=== PATIENT | male | born 1950 | race Caucasian/White ===

== ENCOUNTER 2017-12-25 18:44 | Emergency (ER) | payer MEDICARE, BC ==
[2017-12-25 18:57] VITALS: BP 144/57
--- OUTSIDE RECORDS SUMMARY | 2017-12-25 19:55 | XMS REPORT ---
:1950 External Reference #:[id number] [facility] Address [address] [place] [address] Phone [phone] Care Team Providers Name Role Phone Ar Gupta MD Primary Care Physician Unavailable Payers Type Date Identification Numbers Payment Provider Subscriber Medicare Primary Effective: Policy Number: Medicare Sobeida Broussard 2014 [id number] PayID: [id number] [address] [place] [address] Medigap Part B Effective: 2012 Policy Number: PAOLO Cecilia Broussard [id number] PayID: [id number] [address] [address] [place] [address] Medigap Part B Effective: 2010 Policy Number: BS Debbie JUSTINA Broussard [id number] Expires: 2012 PayID: [id number] [address] [address] [place] [address] Problems Date Description Provider Status Onset: 07/07/2016 Anxiety state Ar Gupta M.D.,FACP Active Note: and depression Onset: 07/07/2016 Mixed hyperlipidemia Ar Gupta M.D.,FACP Active Onset: 07/07/2016 Psoriasis Ar Gupta M.D.,FACP Active Onset: 07/07/2016 Onychomycosis Ar Gupta M.D.,FACP Active Onset: 07/07/2016 Sinus bradycardia Ar Gupta M.D.,FACP Active Onset: 07/07/2016 Impaired fasting glycaemia Ar Gupta M.D.,FACP Active Onset: 03/15/2017 Intermittent asthma Ar Gupta M.D.,FACP Active Note: on PFTs Onset: 06/14/2017 Ex-smoker Ar Gupta M.D.,FACP Active Family History Date Family Member(s) Problem(s) Comments General Heart Disease General Cancer Father PTSD Father due to Heart Disease () Father due to Stroke () Mother Chronic Obstructive Pulmonary Disease (COPD) Mother Viral Hepatitis C Siblings 3 First Brother due to Cystic () Fibrosis : (age 24 Third Brother due to Cystic dx age 7 Years) Fibrosis Paternal Grandmother due to CHF () Maternal Grandfather due to NC () Maternal Grandmother due to Lung Cancer () Social History Type Date Description Comments Marital Status Lives With Occupation club attendant tree care Occupation Retired Cigarette Use 07/07/2016 Former Cigarette Smoker ETOH Use 08/22/2017 consumes 2 six packs per week Smoking Patient is a former smoker Smoked for 25 years; 1ppd plus for 10-15 years. Last 5 years 2.5ppd Recreational Drug Use Denies Drug Use Daily Caffeine Consumes on average 3 cups of regular coffee per day Exercise Type/Frequency Exercises regularly General Hx Text Allergies, Adverse Reactions, Alerts Date Description Reaction Status Severity Comments 02/23/2016 Penicillin active 02/23/2016 Codeine active 04/09/2014 NKDA inactive Medications Medication Date Status Form Strength Qnty SIG Indications Ordering Provider Voriconazole 11/24/ Active Tablets 200mg 30tab 1 tablet Roro 2018 s by mouth martell Fernandez MD daily for 2 weeks Prilosec 10/02/ Active Capsules DR 20mg 30cap Take 1 J45.40 Claudia S. 2018 s tab by Foster, mouth N.P. daily Calcipotriene 06/14/ Active Cream 0.005% 120un use twice Ar 2018 its daily Jakub Gupta M.D.,MARGARETTEP Clobetasol 06/14/ Active Ointment 0.05% 15gm use twice Ar Propionate 2018 daily Jakub Gupta M.D.,MARGARETTEP Fluticasone 06/14/ Active Suspension 50mcg/Act 16uni 1 spray Ar Propionate 2018 ts each Jakub Gupta, nostril M.D.,FACP in in the morning Ventolin HFA 03/15/ Active Aerosol 108(90Base 1unit 2 puffs Ar 2016 ) mcg/Act s by mouth Jakub Gupta, four M.DRuthann,FACP times a day as needed Epipen 2-Gaurang 01/05/ Active Solution 0.3mg/0.3M 2unit use as Ar 2016 Auto-Inject L s directed Jakub Gupta M.D.,FACP Sertraline HCL 07/07/ Active Tablets 50mg 45tab Take 1 Ar 2016 s And 05/23 Jakub Gupta, Tablets M.D.,FACP By Mouth One Time Daily Aspir-81 / Active Tablets DR 81mg 1 by Unknown 0000 mouth every day Clonazepam / Active Tablets 0.5mg 60tab take 1 by [place] 0000 s mouth Pachikara twice a , M.D. day as directed Ibuprofen / Active Tablets 600mg three Unknown 0000 times a day prn Breo Ellipta / Active Aerosol 200-25mcg/ Inhale 1 Unknown 0000 Inh puff By Mouth Every Day Spiriva / Active Aerosol 1.25mcg/Ac inhale Unknown Respimat 0000 t two puffs by mouth every day Osage 3 / Active Capsules 1 by Unknown 0000 mouth every day Multi Vitamin / Active Tablets 1 by Unknown Daily 0000 mouth every day Vitamin B12 / Active Tablets 100mcg 1 by Unknown 0000 mouth every day Rosuvastatin / Active Tablets 5mg 90tab Take 1 Ar Calcium 0000 s Tablet By Jakub Gupta, Mouth M.D.,FACP Nightly AT Bedtime Doxycycline 06/21/ Hx Tablets 100mg 20tab 1 by Ar Shearerclate 2017 - s mouth Jakub Gupta, 07/01/ twice a M.DRuthann,FACP 2017 day Arnuity Ellipta 06/14/ Hx Aerosol 100mcg/Act 30uni 1 puff Ar 2018 - ts inhaled Jakub Gupta, 08/22/ every day M.D.,FACP 2017 Doxycycline 09/05/ Hx Capsules 100mg 2caps 2 tabs Ar Hoffman 2016 - daily x 1 Jakub Gupta, 09/23/ day [place],[facility] 2017 Paroxetine HCL 07/07/ Hx Tablets 20mg 90tab 1 by Ar 2016 - s mouth Jakub Gupta, 07/07/ every day [place],[facility] 2016 Paroxetine HCL 07/07/ Hx Tablets 10mg 21tab take one Ar Kwan - s tablet by Jakub Gupta, 09/23/ mouth one Yes[place],[facility] 2017 time daily for 3 wks then stop Terbinafine HCL 07/07/ Hx Tablets 250mg 84tab take one Ar 2016 - s tablet by Jakub Gupta, 09/29/ mouth one Yes[place],[facility] 2017 time daily for 12 weeks Percocet 07/31/ Hx Tablets 5-325mg 40tab 1-2 po Dirk 2011 - q4h prn Christie, 04/01/ pain [place] [address] / Hx Unknown 0000 Klonopin / Hx 0.5mg Unknown 0000 - 2016 Paxil / Hx 20mg Unknown 0000 - 2016 Paroxetine HCL / Hx Tablets 20mg Take 1 Unknown 0000 - Tablet By Mouth 2016 Every Day Spiriva / Hx Aerosol 2.5mcg/Act 2 puffs Unknown Respimat 0000 - every day 2017 Immunizations CPT Code Status Date Vaccine Lot # 10230 Given 02/10/2017 Influenza Virus Vaccine, Quadrivalent, Split, Preservative Free 25691 Given 02/29/2016 Pneumococcal Conjugate Vaccine 13 Valent For Intramuscular Use 04206 Given 12/01/2014 Pneumonia Vaccine 24193 Given 07/04/2012 Tdap - Tetanus/Diptheria/Acellular Pertussis 11814 Given 11/24/2005 Hepatitis A Vaccine Adult Dosage 09114 Given 05/25/2005 Hepatitis A Vaccine Adult Dosage Vital Signs Date Vital Result Comment 12/11/2017 Height 70 inches 5'10" Weight 180.00 lb Heart Rate 54 /min BP Systolic Sitting 118 mmHg Lue regular cuff BP Diastolic Sitting 78 mmHg Lue regular cuff Respiratory Rate 12 /min O2 % BldC Oximetry 96 % BMI (Body Mass Index) 25.8 kg/m2 11/16/2017 Height 70 inches 5'10" Weight 182.00 lb Heart Rate 48 /min BP Systolic Sitting 108 mmHg BP Diastolic Sitting 60 mmHg Respiratory Rate 14 /min O2 % BldC Oximetry 98 % BMI (Body Mass Index) 26.1 kg/m2 10/02/2017 Height 70 inches 5'10" Weight 190.00 lb Heart Rate 52 /min BP Systolic Sitting 108 mmHg BP Diastolic Sitting 58 mmHg Respiratory Rate 14 /min O2 % BldC Oximetry 95 % BMI (Body Mass Index) 27.3 kg/m2 08/28/2017 Height 70 inches 5'10" Weight 180.00 lb Per patient Heart Rate 50 /min BP Systolic Sitting 140 mmHg Rue large cuff BP Diastolic Sitting 80 mmHg Rue large cuff Respiratory Rate 12 /min O2 % BldC Oximetry 96 % BMI (Body Mass Index) 25.8 kg/m2 08/22/2017 Height 70 inches 5'10" Weight 182.00 lb Heart Rate 67 /min BP Systolic Sitting 118 mmHg BP Diastolic Sitting 678 mmHg Body Temperature 95.2 F O2 % BldC Oximetry 98 % BMI (Body Mass Index) 26.1 kg/m2 07/31/2017 Weight 177.00 lb Heart Rate 47 /min BP Systolic 122 mmHg BP Diastolic 60 mmHg Body Temperature 97.0 F O2 % BldC Oximetry 97 % 06/21/2017 Weight 185.00 lb Heart Rate 52 /min BP Systolic Sitting 120 mmHg BP Diastolic Sitting 58 mmHg Body Temperature 96.6 F O2 % BldC Oximetry 96 % 06/14/2017 Weight 189.00 lb Heart Rate 51 /min BP Systolic Sitting 128 mmHg BP Diastolic Sitting 70 mmHg Body Temperature 96.3 F O2 % BldC Oximetry 95 % 05/29/2017 Height 70 inches 5'10" Weight 184.00 lb BP Systolic 118 mmHg BP Diastolic 78 mmHg Respiratory Rate 18 /min Body Temperature 97.8 F Pain Level 2 BMI (Body Mass Index) 26.4 kg/m2 02/27/2017 Weight 189.00 lb Heart Rate 42 /min BP Systolic Sitting 114 mmHg BP Diastolic Sitting 66 mmHg Body Temperature 95.2 F O2 % BldC Oximetry 97 % 09/23/2016 Weight 195.12 lb Heart Rate 50 /min BP Systolic Sitting 100 mmHg BP Diastolic Sitting 60 mmHg Body Temperature 95.2 F O2 % BldC Oximetry 97 % 07/07/2016 Height 70 inches 5'10" Weight 197.00 lb Heart Rate 52 /min BP Systolic Sitting 118 mmHg Irregular BP Diastolic Sitting 60 mmHg Irregular Body Temperature 96.4 F O2 % BldC Oximetry 96 % BMI (Body Mass Index) 28.3 kg/m2 03/22/2016 Heart Rate 42 /min Respiratory Rate 16 /min Body Temperature 96.8 F 02/23/2016 Height 70 inches 5'10" Weight 195.00 lb Heart Rate 54 /min BP Systolic 140 mmHg BP Diastolic 70 mmHg Respiratory Rate 16 /min Body Temperature 97.3 F BMI (Body Mass Index) 28.0 kg/m2 04/09/2014 Height 70 inches 5'10" Weight 185.00 lb Heart Rate 53 /min BP Systolic 131 mmHg BP Diastolic 74 mmHg BMI (Body Mass Index) 26.5 kg/m2 07/06/2010 Height 69.75 inches 5'9.75" Weight 190.00 lb Heart Rate 48 /min BP Systolic 120 mmHg BP Diastolic 67 mmHg BMI (Body Mass Index) 27.5 kg/m2 Results Test Date Test Result H/L Range Note Laboratory test 11/16/2017 Fungal Cult Other SEE RESULT 1 finding Sources BELOW Sputum Culture & 11/16/2017 Sputum Culture Gram SEE RESULT 2 Sensitiv Stain BELOW Laboratory test 11/16/2017 Fungal Culture Id See Comment 3 finding Laboratory test 08/28/2017 Alpha 1 Antitrypsin A1a 114 mg/dL 100 - 190 4 finding Anca Panel For 08/28/2017 Myeloperoxidase AB < 0.2 U 5 Vasculitis Proteinase 3 AB < 0.2 U 6 CBC Auto Diff 08/28/2017 White Blood Count 6.7 10^3/uL 3.5-10.8 Red Blood Count 5.21 10^6/uL 4.0-5.4 Hemoglobin 15.9 g/dL 14.0-18.0 Hematocrit 47 % 42-52 Mean Corpuscular Volume 90 fL 80-94 Mean Corpuscular Hemoglobin 30 pg 27-31 Mean Corpuscular HGB Conc 34 g/dL 31-36 Red Cell Distribution Width 14 % 10.5-15 Platelet Count 173 10^3/uL 150-450 Mean Platelet Volume 8.4 um3 7.4-10.4 Abs Neutrophils 4.2 10^3/uL 1.5-7.7 Abs Lymphocytes 1.8 10^3/uL 1.0-4.8 Abs Monocytes 0.4 10^3/uL 0-0.8 Abs Eosinophils 0.2 10^3/uL 0-0.6 Abs Basophils 0.1 10^3/uL 0-0.2 Abs Nucleated RBC 0 10^3/uL Granulocyte % 62.1 % 38-83 Lymphocyte % 26.7 % 25-47 Monocyte % 6.6 % 0-7 Eosinophil % 3.5 % 0-6 Basophil % 1.1 % 0-2 Nucleated Red Blood Cells % 0 Igg Subclasses 08/28/2017 Total IgG 686 mg/dL 767 - 1590 Immunoglobulin G1 325 mg/dL 341 - 894 Immunoglobulin G2 280 mg/dL 171 - 632 Immunoglobulin G3 67.9 mg/dL 7 Immunoglobulin G4 19.7 mg/dL 8 Laboratory test finding 08/28/2017 Immunoglobulin E (Ige) 111 kU/L <=214 9 Immunoglobulin A (Iga) 154 mg/dL 61 - 356 10 Rheumatoid Factor <10 IU/mL 0-14 11 Anti Nuclear Antibody 0.6 U 12 Angiotensin Converting Enzyme 19 U/L 8 - 53 13 CRP High Sensitivity 0.49 mg/L 14 Laboratory test finding 08/22/2017 Hepatitis C Antibody Nonreactive Nonreactive Erythrocyte Sed Rate 7 mm/Hr 0-40 Basic Metabolic Panel 08/22/2017 Sodium 140 mmol/L 139-145 Potassium 4.3 mmol/L 3.5-5.0 Chloride 101 mmol/L 101-111 Co2 Carbon Dioxide 33 mmol/L High 22-32 Anion Gap 6 mmol/L 2-11 Glucose 92 mg/dL 70-100 Blood Urea Nitrogen 13 mg/dL 6-24 Creatinine 1.05 mg/dL 0.67-1.17 BUN/Creatinine Ratio 12.4 8-20 Calcium 9.7 mg/dL 8.6-10.3 Egfr Non- 70.2 >60 Egfr 90.3 >60 15 Basic Metabolic Panel 08/21/2017 Sodium 142 mmol/L 139-145 Potassium 4.1 mmol/L 3.5-5.0 Chloride 103 mmol/L 101-111 Co2 Carbon Dioxide 33 mmol/L High 22-32 Anion Gap 6 mmol/L 2-11 Glucose 102 mg/dL High 70-100 Blood Urea Nitrogen 14 mg/dL 6-24 Creatinine 1.22 mg/dL High 0.67-1.17 BUN/Creatinine Ratio 11.5 8-20 Calcium 9.4 mg/dL 8.6-10.3 Egfr Non- 59.1 >60 Egfr 76.0 >60 16 Laboratory test finding 08/17/2017 Blood Urea Nitrogen BUN 14 mg/dL 6-24 Creatinine 08/17/2017 Creatinine 0.94 mg/dL 0.67-1.17 Egfr Non- 79.8 >60 Egfr 102.6 >60 17 Laboratory test finding 05/08/2017 TSH (Thyroid Stim Horm) 2.00 mcIU/mL 0.34-5.60 Vitamin B12 492 pg/mL 180-914 18 Comp Metabolic Panel 05/08/2017 Sodium 140 mmol/L 133-145 Potassium 4.1 mmol/L 3.5-5.0 Chloride 104 mmol/L 101-111 Co2 Carbon Dioxide 32 mmol/L 22-32 Anion Gap 4 mmol/L 2-11 Glucose 101 mg/dL High 70-100 Blood Urea Nitrogen 17 mg/dL 6-24 Creatinine 1.00 mg/dL 0.67-1.17 BUN/Creatinine Ratio 17.0 8-20 Calcium 9.4 mg/dL 8.6-10.3 Total Protein 6.2 g/dL Low 6.4-8.9 Albumin 4.1 g/dL 3.2-5.2 Globulin 2.1 g/dL 2-4 Albumin/Globulin Ratio 2.0 1-3 Total Bilirubin 0.60 mg/dL 0.2-1.0 Alkaline Phosphatase 44 U/L 34-104 Alt 20 U/L 7-52 Ast 21 U/L 13-39 Egfr Non- 74.5 >60 Egfr 95.9 >60 19 Lipid Profile (Trig/Chol/HDL) 05/08/2017 Triglycerides 69 mg/dL 20 Cholesterol 147 mg/dL 21 HDL Cholesterol 47.2 mg/dL 22 LDL Cholesterol 86 mg/dL 23 Basic Metabolic Panel 11/04/2016 Sodium 138 mmol/L 133-145 Potassium 4.5 mmol/L 3.5-5.0 Chloride 105 mmol/L 101-111 Co2 Carbon Dioxide 25 mmol/L 22-32 Anion Gap 8 mmol/L 2-11 Glucose 107 mg/dL High 70-100 Blood Urea Nitrogen 16 mg/dL 6-24 Creatinine 1.04 mg/dL 0.67-1.17 BUN/Creatinine Ratio 15.4 8-20 Calcium 8.9 mg/dL 8.6-10.3 Egfr Non- 71.2 >60 Egfr 91.6 >60 24 Laboratory test finding 11/04/2016 Hemoglobin A1c (Glyco 5.6 % Less than 6.0 25 HGB) Liver Function Panel 08/30/2016 Total Protein 6.6 g/dL 6.4-8.9 Albumin 4.2 g/dL 3.2-5.2 Globulin 2.4 g/dL 2-4 Albumin/Globulin Ratio 1.8 1-3 Total Bilirubin 0.60 mg/dL 0.2-1.0 Direct Bilirubin 0.10 mg/dL 0.03-0.18 Indirect Bilirubin 0.5 mg/dL 0.3-1.0 Alkaline Phosphatase 51 U/L 34-104 Alt 33 U/L 7-52 Ast 29 U/L 13-39 Laboratory test finding 03/14/2016 Surgical Pathology SEE RESULT BELOW 26 1 SEE RESULT BELOW Name: SOBEIDA BROUSSARD : [address]: Roro Fernandez MD Acct: [id number] Unit: [id number] AGE: 67 Location: [facility] Re11/16/17 SEX: M Status: REG REF SPEC: [id number] GIOVANNI: 11/16/[address]: Roro Fernandez MD REQ: [id number] RECD: 11/16/17-1223 STATUS: RES _ SOURCE: RESP SPDESC: ORDERED: Fungal - Other Procedure Result Reported Site Fungal Cult - Other Sources Preliminary 12/04/17- 140 ML Organism 1 MOLD Please see sputum culture for mold identification. * ML - Main Lab . END OF REPORT DEPARTMENT OF PATHOLOGY, [address] [place] [address] Manjinder Craig M.D. Director [facility] # [id number] 2 SEE RESULT BELOW Name: SOBEIDA BROUSSARD : [address]: Roro Fernandez MD Acct: [id number] Unit: [id number] AGE: 67 Location: [facility] Re11/16/17 SEX: M Status: REG REF SPEC: [id number] GIOVANNI: 11/16/[address] [facility] [address]: Roro Fernandez MD REQ: [id number] RECD: 11/16/17 STATUS: COMP _ SOURCE: SPUTUM SPDESC: ORDERED: Sputum Cult/GS Procedure Result Reported Site Sputum Smear Final 11/16/17- 1453 ML 4+ Neutrophils 1+ Epithelial Cells 1+ Gram Positive Diplococci 3+ Gram Positive Cocci 1+ Gram Positive Bacilli 2+ Gram Negative Coccobacilli Sputum Culture Final 11/18/17- 1051 ML Organism 1 MOLD Referred Specimen Isolate sent to [facility] for Identification Organism 2 NORMAL IDA Quantity 3+ * - [facility] . END OF REPORT DEPARTMENT OF PATHOLOGY, [address] [place] [address] Manjinder Craig M.D. Director [facility] # [id number] 3 SOURCE: SPUTUM CULTURE REFERRED FOR ID, FUNGUS FINAL ASPERGILLUS FUMIGATUS Test Performed by: [facility] [address] [place] [address] 4 Test Performed by: [facility] [address] [place] [address] 5 REFERENCE VALUE <0.4 (Negative) 6 REFERENCE VALUE <0.4 (Negative) Test Performed by: [facility] [address] [place] [address] 7 REFERENCE VALUE 18.4 - 106.0 8 REFERENCE VALUE 2.4 - 121.0 Test Performed by: [facility] [address] [place] [address] 9 Test Performed by: [facility] [address] [place] [address] 10 Test Performed by: [facility] [address] [place] [address] 11 Performed by [facility], [address] [place] [id number] [email or web address], Israel Parra MD - Lab. Director Test Performed by: [facility] [address] [place] [address] 12 REFERENCE VALUE <=1.0 (Negative) Test Performed by: [facility] [address] [place] [address] 13 Test Performed by: [facility] [address] [place] [address] 14 Low risk: <1.00 Average risk: 1.00-3.00 High risk: >3.00 15 Because ethnic data is not always readily available, this report includes an eGFR for both -Americans and non- Americans. The National Kidney Disease Education Program (NKDEP) does not endorse the use of the MDRD equation for patients that are not between the ages of 18 and 70, are , have extremes of body size, muscle mass, or nutritional status, or are non- or non-. According to the National Kidney Foundation, irrespective of diagnosis, the stage of the disease is based on the level of kidney function: Stage Description GFR(mL/min/1.73 m(2)) 1 Kidney damage with normal or decreased GFR 90 2 Kidney damage with mild decrease in GFR 60-89 3 Moderate decrease in GFR 30-59 4 Severe decrease in GFR 15-29 5 Kidney failure <15 (or dialysis) 16 Because ethnic data is not always readily available, this report includes an eGFR for both -Americans and non- Americans. The National Kidney Disease Education Program (NKDEP) does not endorse the use of the MDRD equation for patients that are not between the ages of 18 and 70, are , have extremes of body size, muscle mass, or nutritional status, or are non- or non-. According to the National Kidney Foundation, irrespective of diagnosis, the stage of the disease is based on the level of kidney function: Stage Description GFR(mL/min/1.73 m(2)) 1 Kidney damage with normal or decreased GFR 90 2 Kidney damage with mild decrease in GFR 60-89 3 Moderate decrease in GFR 30-59 4 Severe decrease in GFR 15-29 5 Kidney failure <15 (or dialysis) 17 Because ethnic data is not always readily available, this report includes an eGFR for both -Americans and non- Americans. The National Kidney Disease Education Program (NKDEP) does not endorse the use of the MDRD equation for patients that are not between the ages of 18 and 70, are , have extremes of body size, muscle mass, or nutritional status, or are non- or non-. According to the National Kidney Foundation, irrespective of diagnosis, the stage of the disease is based on the level of kidney function: Stage Description GFR(mL/min/1.73 m(2)) 1 Kidney damage with normal or decreased GFR 90 2 Kidney damage with mild decrease in GFR 60-89 3 Moderate decrease in GFR 30-59 4 Severe decrease in GFR 15-29 5 Kidney failure <15 (or dialysis) 18 Normal Range 180 to 914 Indeterminate Range 145 to 180 Deficient Range <145 19 Because ethnic data is not always readily available, this report includes an eGFR for both -Americans and non- Americans. The National Kidney Disease Education Program (NKDEP) does not endorse the use of the MDRD equation for patients that are not between the ages of 18 and 70, are , have extremes of body size, muscle mass, or nutritional status, or are non- or non-. According to the National Kidney Foundation, irrespective of diagnosis, the stage of the disease is based on the level of kidney function: Stage Description GFR(mL/min/1.73 m(2)) 1 Kidney damage with normal or decreased GFR 90 2 Kidney damage with mild decrease in GFR 60-89 3 Moderate decrease in GFR 30-59 4 Severe decrease in GFR 15-29 5 Kidney failure <15 (or dialysis) 20 Desirable: <150 Borderline High: 150-199 High: 200-499 Very High: >500 21 Desirable: <200 Borderline High: 200-239 High: >239 22 Low: <40 Desirable: 40-60 High: >60 23 Desirable: <100 Near Optimal: 100-129 Borderline High: 130-159 High: 160-189 Very High: >189 24 Because ethnic data is not always readily available, this report includes an eGFR for both -Americans and non- Americans. The National Kidney Disease Education Program (NKDEP) does not endorse the use of the MDRD equation for patients that are not between the ages of 18 and 70, are , have extremes of body size, muscle mass, or nutritional status, or are non- or non-. According to the National Kidney Foundation, irrespective of diagnosis, the stage of the disease is based on the level of kidney function: Stage Description GFR(mL/min/1.73 m(2)) 1 Kidney damage with normal or decreased GFR 90 2 Kidney damage with mild decrease in GFR 60-89 3 Moderate decrease in GFR 30-59 4 Severe decrease in GFR 15-29 5 Kidney failure <15 (or dialysis) 25 Therapeutic target for the treatment of diabetes Mellitus patients is <7% HBA1C, and in selective patients <6.0%.Please refer to [place] [employer] Diabetic care guidelines for further information. 26 SEE RESULT BELOW Name: SOBEIDA BROUSSARD : [address]: Jack Hernandez MD Acct: [id number] Unit: [id number] AGE: 65 Location: [place] Re03/14/16 SEX: M Status: REG [facility] SPEC: [id number] GIOVANNI: 03/14/16- SUBM DR: Jack Hernandez MD REQ: [id number] RECD: 03/14/16 STATUS: SOUT _ ORDERED: LEVEL III FINAL DIAGNOSIS Soft tissue, left upper back, excision: -- Lipoma and skeletal muscle fragments. PRE-OPERATIVE DIAGNOSIS Lipoma left upper back GROSS DESCRIPTION The specimen is received in formalin labeled, Lipoma Left Upper Back, and consists of an 8.5 x 7.5 by up to 1.6 cm aggregate of yellow irregular focally encapsulated adipose tissue fragments. The cut surface consists of glistening yellow lobulated adipose tissue. Skin Specialist sections, one cassette. Signed (signature on file) Manjinder Craig MD [id number] END OF REPORT * ML=Testing performed at Main Lab DEPARTMENT OF PATHOLOGY, [address] [place] [address] Manjinder Craig M.D. Director [facility] # [id number] Procedures Date CPT Code Description Status 03/07/2017 17053 Diffusing Capacity Completed 03/07/2017 40472 Plethysmography Determination Lung Volumes & Per Airway Completed Resist 03/07/2017 13407 Pulmonary Function><Bronchodil Completed 03/14/2016 78184 Excision Tumor Back/Flank, Soft Tissue, Subcutaneous, > Completed 3 CM 02/26/2015 Colonoscopy Completed 04/09/2014 84081 Rad Exam; Knee, Ap&L Completed 04/09/2014 79098 Xray Knee 3 Views Completed 06/18/2013 20088 Stress Test Completed 12/10/2012 40445 Polysomnography Sleep Staging 4+ Parameters W/Cpap Completed 08/23/2012 03997 Polysomnography Sleep Staging 4+ Parameters Completed 04/23/2012 73460 Rad Exam; Hip Unilat Completed 04/23/2012 83755 Rad Exam; Pelvis Completed 11/02/2011 60176 Rad Exam; Hip Unilat Completed 11/02/2011 67611 Rad Exam; Pelvis Completed 08/10/2011 22691 Rad Exam; Hip Unilat Completed 08/10/2011 88198 Rad Exam; Pelvis Completed 06/11/2010 47161 Amputation,Finger Or Thumb,Prim Or Secondary Any JT Or Completed [facility] 06/11/2010 75194 Amputation,Finger Or Thumb,Prim Or Secondary Any JT Or Completed [facility] Encounters Type Date Location Provider CPT E/M Dx Office Visit 11/16/2017 10:30a [place] [address] R05 [facility] R04.2 J98.4 J45.40 R91.1 Office Visit 10/02/2017 10:00a Pulmonology And Sleep Claudia Smith 45730 J45.40 [facility] N.P[facility] J98.4 Z87.891 Office Visit 08/28/2017 7:00a [facility] [address] J98.4 [facility] J45.40 Z87.891 Office Visit 07/31/2017 11:00a [facility] Internal Ar Gupta, 12920 J45.40 Medicine - [place] Perfecto Patterson,FACP Office Visit 06/21/2017 12:20p [facility] Internal Ar Gupta, 26730 J45.41 Medicine - [place] Perfecto Patterson,FACP R04.2 Office Visit 06/14/2017 8:20a [facility] Internal Medicine Ar Gupta, 33150 J45.41 - [place] Perfecto Patterson,FACP Office Visit 05/29/2017 9:00a Orthopedic Services Timi Soriano M.D. 02604 M17.11 Of [facility] Office Visit 02/27/2017 2:40p [facility] Internal Medicine Ar Gupta, 82423 J44.9 - [place] Perfecto Patterson,FACP F41.9 Office Visit 09/23/2016 9:40a [facility] Internal Medicine Ar Gupta, 79941 F41.9 - [place] Perfecto Patterson,FACP E78.2 B35.1 Office Visit 07/07/2016 1:00p [facility] Internal Medicine Ar Gupta, 89486 F41.9 - [place] Yesenia,FACP E78.2 R73.01 B35.1 Office Visit 04/09/2014 2:30p Orthopedic Services Timi Soriano M.D. 28235 715.96 Of [facility] Office Visit 09/04/2012 9:49a Agatha Snider, 63768 327.23 Disorder [place] M.D. Office Visit 07/10/2012 10:59a Agatha Sleep Dedrick Snider, [address] 786.09 Disorder [place] M.D. Office Visit 04/23/2012 1:30p [facility] Timi Soriano M.D. 65849 726.5 Of C.M.A. Office Visit 11/02/2011 4:00p [facility] Timi Soriano M.D. 57371 733.97 Of C.M.A. Office Visit 09/21/2011 4:15p [facility] Shekhar Suggs 38881 733.97 Of C.M.ACordelia Astorga Office Visit 08/10/2011 4:30p [facility] Timi Soriano M.D. 38483 733.97 Of C.M.A. Office Visit 08/01/2011 2:00p [facility] Timi Soriano M.D. 88707 733.97 Of C.M.A. Office Visit 07/06/2010 10:00a [facility] LEONID Mendoza 59511 886.0 Of C.M.A. Office Visit 06/15/2010 11:00a [facility] Maura 17681 886.0 Of C.M.ARuthann Saenz M.D. Office Visit 06/11/2010 2:15p [facility] Rufino Mackey M.D. 39871 886.0 Of C.M.A. Plan of Care 12/11/2017 - Claudia Smith, N.P.R04.2 HemoptysisNew Labs:Liver Function PanelFollow up:OV Rebecca 2-3 weeks.Recommendations:Please print lab slip for patient Continue voriconozole for 2 more nnzioN37.4 Other disorders of lungJ45.40 Moderate persistent asthma, ilyobjjhhqsbxT79.1 Solitary pulmonary umloavN59.2 Palpitations
--- OUTSIDE RECORDS SUMMARY | 2017-12-25 19:56 | XMS REPORT ---
:1950 External Reference #:[id number] Author Organization [facility] Address [address] [place] [address] Phone [phone] Care Team Providers Name Role Phone Emery Chawla M.D. Care Team Information Communications Department Chair Unavailable Emery Chawla M.D. Primary Care Physician Unavailable Payers Type Date Identification Numbers Payment Provider Subscriber Medicare Primary PayID: [id number] Medicare-[facility] Govn [employer] Derrell Oneil [address] [facility] [place] [address] [facility] Part B Policy Number: [id number] [facility] Shobha Oneil [place] Group Number: [id number] [address] [address] PayID: [id number] [place] [address] Problems Date Description Provider Status Onset: 12/04/2017 Cough Rosales De Luna MD Active Onset: 12/04/2017 Hemoptysis Rosales De Luna MD Active Onset: 12/04/2017 Bleeding from nose Rosales De Luna MD Active Family History Date Family Member(s) Problem(s) Comments General Hearing Loss General Heart Attack General Heart Disease Father Heart Attack X 3 Father Heart Disease Mother Hearing Loss Social History Type Date Description Comments Occupation amborist Cigarette Use Former cigarette smoker, smoked 2 packs a day for 18 years, quit smoking at age 57 Cigars Does not smoke cigars Pipe Does not smoke a pipe Smokeless Tobacco Does not use smokeless tobacco Alcohol Rarely drinks alcohol Allergies, Adverse Reactions, Alerts Date Description Reaction Status Severity Comments 07/15/2009 Penicillins active 07/15/2009 Codeine Phosphate active Medications Medication Date Status Form Strength Qnty SIG Indications Ordering Provider Voriconazole 00/ Active Tablets 200mg Take 1 Unknown 0000 Tablet By Mouth Twice A Day For 2 Weeks Clonazepam / Active Tablets 0.5mg Take 1 Unknown 0000 Tablet By Mouth Two Times Daily as Directed Maximum Daily Dose Spiriva Respimat / Active Aerosol 1.25mcg/Ac Inhale 2 Unknown 0000 t Puffs By Mouth Every Day Breo Ellipta / Active Aerosol 200-25mcg/ Inhale 1 Unknown 0000 Inh puff By Mouth Every Day Sertraline HCL / Active Tablets 50mg Take 1 And Unknown 0000 1/2 Tablets By Mouth One Time Daily Omeprazole / Active Capsules 20mg Take [address] Capsule By Mouth Every Day Fluticasone / Active 50mcg as Unknown Nasal [place] 0000 directed Rosuvastatin / Active Tablets 5mg Take 1 Unknown Calcium 0000 Tablet By Mouth Nightly AT Bedtime Paxil / Hx Unknown 2017 Klonopin / Hx Unknown 2017 Fenofibrate / Hx Unknown 2017 Sulfamethazine / Hx Unknown 2017 Vital Signs Date Vital Result Comment 12/04/2017 Weight 182.00 lb Weight in kg's 82.555 Height 70 inches 5'10" Height in cm's 177.8 cm BMI (Body Mass Index) 26.1 kg/m2 09/25/2009 BP Systolic 121 mmHg BP Diastolic 63 mmHg Heart Rate 55 /min Respiratory Rate 16 /min Results Description No Information Procedures Date CPT Code Description Status 12/04/2017 26282 Fiberoptic Laryngoscopy Completed 09/25/2009 70529 Destruction First Lesion Completed Encounters Type Date Location Provider CPT E/M Dx Office Visit 12/04/2017 10:15a [place],After 05/22/07 [place] [address] R04.0 R04.2 R05 J38.7 Office Visit 09/25/2009 2:00p [place],After 05/22/07 [place] [address] 216.3 078.19 Plan of Care 12/04/2017 - Rosales De Luna MDR04.0 EpistaxisComments:No evidence of significant abnormality of the larynx, hypopharynx, tongue base, nasopharynx, or nasal cavity. Reassured that there was no evidence of any significant mucosal pathology of the upper aerodigestive tract.R04.2 UzdqhblxlhC44 FsujeD21.7 Other diseases of larynx
== END 2017-12-25 20:14 | disposition left against medical advice (07) ==
LOC: ED 18:44
DX: R51 Headache (principal); Z53.21 Procedure and treatment not carried out due to patient leaving prior to being seen by health care provider
CPT/HCPCS: 99282

== ENCOUNTER 2019-10-18 10:08 | Inpatient (IN) ==
[2019-10-18] MEDS ORDERED: Heparin 1,000 UNIT/ML CATH LAB 1,000 10 ml (10,000 UNITS) IV ONE ×2 (11:23→12:21)
[2019-10-18] MEDS ORDERED: VERAPAMIL 2.5 MG/ML 2 ML VIAL ** 5 mg/2 ml ONE (11:23)
[2019-10-18] MEDS ORDERED: Midazolam 5 mg/5 ml VIAL 1 mg/ml 5 ml VIAL (5 mg) ONE (11:23)
[2019-10-18] MEDS ORDERED: nitroGLYCERIN DRIP 25,000 MCG/250 ML BTL ONE (11:23)
[2019-10-18] MEDS ORDERED: Lidocaine 1% VIAL 10 MG/ML VIAL ONE (11:23)
[2019-10-18] MEDS ORDERED: fentaNYL 100 mcg/2 ml 50 MCG/ML VIAL ONE (11:23)
[2019-10-18] MEDS ORDERED: Iohexol 350 (CONTRAST) 200 ML MDV IV ONE (11:23)
[2019-10-18] MEDS ORDERED: Heparin 2 UNITS/ML 1000 mls 3,000 ML IV ONE (11:23)
[2019-10-18] MEDS ORDERED: diPHENhydraMINE IV 50 MG/ML 1 ml VIAL (BENADRYL) ONE (11:47)
[2019-10-18] MEDS ORDERED: NS 0.9% 1000 ml BAG 1,000 ML IV SCH (16:15)
[2019-10-19 04:30] LABS: ABS Basophils 0.1 10^3/ul (0-0.2); ABS Eosinophils 0.2 10^3/ul (0-0.6); ABS Lymphocytes 1.1 10^3/ul (1.0-4.8); ABS Monocytes 0.6 10^3/ul (0-0.8); Eosinophil % 3.5 %; Hematocrit 41 % (42-52); Hemoglobin 13.8 g/dL (14.0-18.0); Lymphocyte % 15.6 %; Mean Corpuscular HGB Conc 34 g/dL (31-36); Mean Corpuscular Hemoglobin 31 pg (27-31); Mean Corpuscular Volume 91 fL (80-94); Mean Platelet Volume 8.8 fL (7.4-10.4); Platelet Count 183 10^3/uL (150-450); Red Blood Count 4.45 10^6 /uL (4.18-5.48); Red Cell Distribution Width 14 % (10-15)
[2019-10-19 04:51] LABS: Albumin 3.4 g/dL (3.2-5.2); Albumin/Globulin Ratio 1.8 (1-3); Calcium 7.9 mg/dL (8.6-10.3); EGFR African American 109.3 (>60); EGFR Non-African American 90.3 (>60); Globulin 1.9 g/dL (2-4); HDL Cholesterol 41.1 mg/dL; Potassium 4.1 mmol/L (3.5-5.0); Total Bilirubin 0.4 mg/dL (0.2-1.0); Total Protein 5.3 g/dL (6.4-8.9)
[2019-10-19 12:11] VITALS: BP 157/91
[2019-10-19] MEDS ORDERED: Rosuvastatin 10 mg TAB (NF) PO SCH (21:00)
== END 2019-10-19 15:23 | disposition home or self-care (01) | DRG 247 ==
LOC: CHICATH 10:08 → ICU 13:59
PROVIDERS: ADMIT Internal Medicine Clinical Cardiac Electrophysiology; ATTEND Internal Medicine Clinical Cardiac Electrophysiology

== ENCOUNTER 2019-11-14 16:22 | Observation (INO) ==
[2019-11-14 17:01] LABS: ABS Basophils 0.1 10^3/ul (0-0.2); ABS Eosinophils 0.4 10^3/ul (0-0.6); ABS Lymphocytes 1.2 10^3/ul (1.0-4.8); ABS Monocytes 0.5 10^3/ul (0-0.8); Eosinophil % 5.7 %; Hematocrit 42 % (42-52); Hemoglobin 14.2 g/dL (14.0-18.0); Lymphocyte % 17.2 %; Mean Corpuscular HGB Conc 34 g/dL (31-36); Mean Corpuscular Hemoglobin 31 pg (27-31); Mean Corpuscular Volume 90 fL (80-94); Mean Platelet Volume 8.7 fL (7.4-10.4); Nucleated Red Blood Cells % 0.1; Platelet Count 201 10^3/uL (150-450); Red Blood Count 4.65 10^6 /uL (4.18-5.48); Red Cell Distribution Width 14 % (10-15); White Blood Count 7.1 10^3/uL (3.5-10.8)
[2019-11-14 17:19] LABS: Albumin 4.1 g/dL (3.2-5.2); Albumin/Globulin Ratio 1.5 (1-3); BUN/Creatinine Ratio 13.5 (8-20); Calcium 9.5 mg/dL (8.6-10.3); EGFR African American 93.7 (>60); EGFR Non-African American 77.4 (>60); Globulin 2.7 g/dL (2-4); Potassium 3.9 mmol/L (3.5-5.0); Total Bilirubin 0.4 mg/dL (0.2-1.0); Total Protein 6.8 g/dL (6.4-8.9)
[2019-11-14 17:46] LABS: T4, Total 7.77 mcg/dL (6.09-12.23)
[2019-11-14] MEDS ORDERED: Albuterol 2.5mg/3 ml (0.083%) NEB.SOLN INH PRN (18:47)
[2019-11-14 19:55] LABS: TSH (Thyroid Stimulating Horm) 2.37 mcIU/mL (0.34-5.60)
[2019-11-14] MEDS ORDERED: Rivaroxaban 15 mg TAB (*) PO SCH (20:00)
[2019-11-14] MEDS: Mometasone/Formoter 200/5 MDI INH SCH (22:31)
[2019-11-14] MEDS: Rivaroxaban 15 mg TAB (*) PO SCH (22:43)
[2019-11-15] MEDS ORDERED: Saline NASAL DROPS 0.65% BTL BOTH NARES PRN (03:53)
[2019-11-15] MEDS: Mometasone/Formoter 200/5 MDI INH SCH (08:35)
[2019-11-15] MEDS ORDERED: Aspirin EC 81 mg TAB.EC (enteric coated) PO SCH (09:00)
[2019-11-15] MEDS: Rivaroxaban 15 mg TAB (*) PO SCH (10:50)
[2019-11-15 15:27] VITALS: BP 116/58
== END 2019-11-15 17:00 | disposition home or self-care (01) ==
LOC: ED 16:22 → MEDTELE 16:22
PROVIDERS: ADMIT Internal Medicine; ATTEND Internal Medicine

== ENCOUNTER 2019-12-30 14:47 | Inpatient (IN) ==
[2019-12-30 16:54] LABS: ABS Basophils 0.1 10^3/ul (0-0.2); ABS Eosinophils 0.2 10^3/ul (0-0.6); ABS Monocytes 0.5 10^3/ul (0-0.8); ABS Neutrophils 5.6 10^3/ul (1.5-7.7); Eosinophil % 2.5 %; Hematocrit 22 % (42-52); Hemoglobin 7.2 g/dL (14.0-18.0); Lymphocyte % 13.1 %; Mean Corpuscular HGB Conc 33 g/dL (31-36); Mean Corpuscular Hemoglobin 31 pg (27-31); Mean Corpuscular Volume 92 fL (80-94); Mean Platelet Volume 8.2 fL (7.4-10.4); Platelet Count 215 10^3/uL (150-450); Red Blood Count 2.35 10^6 /uL (4.18-5.48); Red Cell Distribution Width 16 % (10-15); White Blood Count 7.3 10^3/uL (3.5-10.8)
[2019-12-30 16:57] LABS: Urine Appearance Clear; Urine Bilirubin Negative (Negative); Urine Blood Negative (Negative); Urine Color Straw; Urine Glucose Negative (Negative); Urine Ketones Negative (Negative); Urine Nitrite Negative (Negative); Urine Protein Negative (Negative); Urine Specific Gravity 1.002 (1.010-1.030); Urine Urobilinogen Negative (Negative)
[2019-12-30 17:32] LABS: Albumin 3.8 g/dL (3.2-5.2); Anion Gap 5 mmol/L (2-11); CO2 Carbon Dioxide 28 mmol/L (22-32); Calcium 8.9 mg/dL (8.6-10.3); Chloride 107 mmol/L (101-111); Potassium 3.9 mmol/L (3.5-5.0); Sodium 140 mmol/L (135-145)
[2019-12-30 17:38] LABS: ALT 17 U/L (7-52); AST 18 U/L (13-39); Albumin/Globulin Ratio 1.7 (1-3); Alkaline Phosphatase 45 U/L (34-104); BUN/Creatinine Ratio 17.5 (8-20); Blood Urea Nitrogen 18 mg/dL (6-24); C Reactive Protein 1.05 mg/L (<8.01); EGFR African American 86.4 (>60); EGFR Non-African American 71.4 (>60); Globulin 2.2 g/dL (2-4); Glucose 95 mg/dL (70-100)
[2019-12-30] MEDS ORDERED: Iohexol 350 (CONTRAST) 500 ML MDV IV ONE (17:45)
[2019-12-30 17:52] LABS: TSH Ultra Thyroid Stim Horm 2.01 mcIU/mL (0.34-5.60)
[2019-12-30] MEDS ORDERED: Pantoprazole VIAL 40 MG VIAL IV ONE (18:30)
[2019-12-30 19:21] LABS: Activated Partial Thrombo Time 36.7 seconds (26.0-38.0); INR 1.48 (0.82-1.09)
[2019-12-30] MEDS ORDERED: Pantoprazole VIAL 40 MG VIAL IV SCH (21:00)
[2019-12-30 21:33] LABS: % Iron Saturation 13 % (15-55); Iron 50 ug/dL (50-212); Total Iron Binding Capacity 388 mcg/dL (250-450); Transferrin 277 mg/dL (203-362); Unsaturated Iron Binding < 373 ug/dL
[2019-12-30] MEDS ORDERED: Albuterol HFA INHALER 8 gm MDI INH PRN (21:48)
[2019-12-30 21:52] LABS: Ferritin 17.2 ng/mL (24-336)
[2019-12-30] MEDS: Mometasone/Formoter 200/5 MDI INH SCH (22:26)
[2019-12-31 01:42] LABS: Hematocrit 23 % (42-52); Hemoglobin 7.7 g/dL (14.0-18.0)
[2019-12-31] MEDS: Pantoprazole VIAL 40 MG VIAL IV SCH ×2 (06:06→19:41)
[2019-12-31 06:50] LABS: INR 1.11 (0.82-1.09)
[2019-12-31 06:55] LABS: BUN/Creatinine Ratio 16.8 (8-20); Calcium 8.4 mg/dL (8.6-10.3); EGFR African American 88.4 (>60)
[2019-12-31] MEDS: Mometasone/Formoter 200/5 MDI INH SCH ×2 (07:42→19:10)
[2019-12-31] MEDS: Aspirin EC 81 mg TAB.EC (enteric coated) PO SCH (10:00)
[2019-12-31] MEDS: Vitamin THERAPEUTIC TAB PO SCH (10:00)
[2019-12-31] MEDS ORDERED: Midazolam 10 mg/10 ml VIAL 1 mg/ml 10 ml VIAL (10 mg) ONE (15:27)
[2019-12-31] MEDS ORDERED: fentaNYL 100 mcg/2 ml 50 MCG/ML VIAL ONE (15:27)
[2019-12-31 19:50] LABS: Hematocrit 25 % (42-52); Hemoglobin 8.6 g/dL (14.0-18.0)
[2020-01-01 05:35] LABS: Hematocrit 25 % (42-52); Hemoglobin 8.6 g/dL (14.0-18.0); Mean Corpuscular HGB Conc 34 g/dL (31-36); Mean Corpuscular Hemoglobin 32 pg (27-31); Mean Corpuscular Volume 92 fL (80-94); Mean Platelet Volume 8.5 fL (7.4-10.4); Platelet Count 182 10^3/uL (150-450); Red Blood Count 2.71 10^6 /uL (4.18-5.48); Red Cell Distribution Width 16 % (10-15); White Blood Count 6.5 10^3/uL (3.5-10.8)
[2020-01-01] MEDS: Pantoprazole VIAL 40 MG VIAL IV SCH ×2 (06:40→18:52)
[2020-01-01] MEDS: Mometasone/Formoter 200/5 MDI INH SCH (07:37)
[2020-01-01] MEDS: Vitamin THERAPEUTIC TAB PO SCH (11:46)
[2020-01-01] MEDS: Aspirin EC 81 mg TAB.EC (enteric coated) PO SCH (11:47)
[2020-01-01 18:59] LABS: Hematocrit 26 % (42-52); Hemoglobin 8.5 g/dL (14.0-18.0); Mean Corpuscular HGB Conc 33 g/dL (31-36); Mean Corpuscular Hemoglobin 30 pg (27-31); Mean Corpuscular Volume 92 fL (80-94); Platelet Count 206 10^3/uL (150-450); Red Blood Count 2.84 10^6 /uL (4.18-5.48); Red Cell Distribution Width 16 % (10-15); White Blood Count 7.5 10^3/uL (3.5-10.8)
[2020-01-02 06:43] LABS: Hematocrit 25 % (42-52); Hemoglobin 8.5 g/dL (14.0-18.0); Mean Corpuscular HGB Conc 34 g/dL (31-36); Mean Corpuscular Hemoglobin 30 pg (27-31); Mean Corpuscular Volume 90 fL (80-94); Mean Platelet Volume 8.2 fL (7.4-10.4); Platelet Count 198 10^3/uL (150-450); Red Cell Distribution Width 16 % (10-15); White Blood Count 6.3 10^3/uL (3.5-10.8)
[2020-01-02] MEDS: Mometasone/Formoter 200/5 MDI INH SCH ×2 (07:32→07:40)
[2020-01-02] MEDS: Vitamin THERAPEUTIC TAB PO SCH (09:04)
[2020-01-02] MEDS: Aspirin EC 81 mg TAB.EC (enteric coated) PO SCH (09:04)
[2020-01-02] MEDS: Pantoprazole VIAL 40 MG VIAL IV SCH (09:05)
[2020-01-02 11:07] VITALS: BP 107/44
== END 2020-01-02 14:30 | disposition home or self-care (01) | DRG 811 ==
LOC: ED 14:47 → MED 20:27
PROVIDERS: ADMIT Nurse Practitioner Family; ATTEND Internal Medicine

== ENCOUNTER 2020-01-02 22:56 | Inpatient (IN) ==
[2020-01-02 23:50] LABS: ABS Basophils 0.1 10^3/ul (0-0.2); ABS Eosinophils 0.3 10^3/ul (0-0.6); ABS Lymphocytes 1.3 10^3/ul (1.0-4.8); ABS Monocytes 0.5 10^3/ul (0-0.8); ABS Neutrophils 4.4 10^3/ul (1.5-7.7); Eosinophil % 4.1 %; Hematocrit 24 % (42-52); Hemoglobin 7.9 g/dL (14.0-18.0); Lymphocyte % 19.5 %; Mean Corpuscular HGB Conc 33 g/dL (31-36); Mean Corpuscular Hemoglobin 31 pg (27-31); Mean Corpuscular Volume 92 fL (80-94); Mean Platelet Volume 8.4 fL (7.4-10.4); Platelet Count 208 10^3/uL (150-450); Red Blood Count 2.59 10^6 /uL (4.18-5.48); Red Cell Distribution Width 16 % (10-15); White Blood Count 6.6 10^3/uL (3.5-10.8)
[2020-01-02 23:59] LABS: INR 0.97 (0.82-1.09)
[2020-01-03] MEDS ORDERED: NS 0.9% 1000 ml BAG 1,000 ML IV ONE
[2020-01-03 00:12] LABS: Albumin 3.7 g/dL (3.2-5.2); Albumin/Globulin Ratio 1.8 (1-3); BUN/Creatinine Ratio 27.2 (8-20); Calcium 9.2 mg/dL (8.6-10.3); EGFR African American 98.4 (>60); EGFR Non-African American 81.3 (>60); Globulin 2.1 g/dL (2-4); Potassium 3.6 mmol/L (3.5-5.0); Total Bilirubin 0.3 mg/dL (0.2-1.0); Total Protein 5.8 g/dL (6.4-8.9)
[2020-01-03 01:58] LABS: ABS Basophils 0.1 10^3/ul (0-0.2); ABS Eosinophils 0.2 10^3/ul (0-0.6); ABS Lymphocytes 1.1 10^3/ul (1.0-4.8); ABS Monocytes 0.5 10^3/ul (0-0.8); ABS Neutrophils 4.6 10^3/ul (1.5-7.7); Eosinophil % 3.7 %; Hematocrit 22 % (42-52); Hemoglobin 7.5 g/dL (14.0-18.0); Lymphocyte % 16.4 %; Mean Corpuscular HGB Conc 34 g/dL (31-36); Mean Corpuscular Hemoglobin 31 pg (27-31); Mean Corpuscular Volume 91 fL (80-94); Mean Platelet Volume 8.7 fL (7.4-10.4); Platelet Count 205 10^3/uL (150-450); Red Blood Count 2.46 10^6 /uL (4.18-5.48); Red Cell Distribution Width 16 % (10-15); White Blood Count 6.4 10^3/uL (3.5-10.8)
[2020-01-03] MEDS ORDERED: Albuterol HFA INHALER 8 gm MDI INH PRN (04:01)
[2020-01-03] MEDS: Mometasone/Formoter 200/5 MDI INH SCH ×2 (07:48→20:25)
[2020-01-03 09:30] LABS: Hematocrit 25 % (42-52); Hemoglobin 8.6 g/dL (14.0-18.0)
[2020-01-03] MEDS: Aspirin EC 81 mg TAB.EC (enteric coated) PO SCH (09:44)
[2020-01-03] MEDS ORDERED: Iron Sucrose 200 MG in NS 0.9% 100 ml BAG 100 ML IVPB ONE (10:00)
[2020-01-03 16:22] LABS: Hematocrit 25 % (42-52); Hemoglobin 8.3 g/dL (14.0-18.0)
[2020-01-03] MEDS ORDERED: Potassium Chlor 20 meq TAB.ER PO ONE ×2 (18:41→19:41)
[2020-01-04 06:35] LABS: Hematocrit 24 % (42-52); Hemoglobin 8.4 g/dL (14.0-18.0); Mean Corpuscular HGB Conc 35 g/dL (31-36); Mean Corpuscular Hemoglobin 32 pg (27-31); Mean Corpuscular Volume 91 fL (80-94); Mean Platelet Volume 8.4 fL (7.4-10.4); Platelet Count 195 10^3/uL (150-450); Red Blood Count 2.66 10^6 /uL (4.18-5.48); Red Cell Distribution Width 15 % (10-15); White Blood Count 5.7 10^3/uL (3.5-10.8)
[2020-01-04 06:51] LABS: BUN/Creatinine Ratio 16.5 (8-20); Calcium 8.7 mg/dL (8.6-10.3); EGFR African American 107.8 (>60); EGFR Non-African American 89.1 (>60); Potassium 4.3 mmol/L (3.5-5.0)
[2020-01-04] MEDS: Mometasone/Formoter 200/5 MDI INH SCH ×2 (07:44→20:04)
[2020-01-04] MEDS: Aspirin EC 81 mg TAB.EC (enteric coated) PO SCH (07:53)
[2020-01-04] MEDS: Sucralfate 1 gm SUSP 1 GM/10 ML UDC PO SCH (16:58)
[2020-01-04 17:09] LABS: Hematocrit 23 % (42-52); Hemoglobin 7.6 g/dL (14.0-18.0)
[2020-01-05] MEDS: Aspirin EC 81 mg TAB.EC (enteric coated) PO SCH (08:21)
[2020-01-05] MEDS: Sucralfate 1 gm SUSP 1 GM/10 ML UDC PO SCH ×3 (08:21→16:52)
[2020-01-05] MEDS: Mometasone/Formoter 200/5 MDI INH SCH ×2 (08:27→19:51)
[2020-01-05 08:46] LABS: ABS Basophils 0.1 10^3/ul (0-0.2); ABS Eosinophils 0.3 10^3/ul (0-0.6); ABS Monocytes 0.5 10^3/ul (0-0.8); ABS Neutrophils 3.4 10^3/ul (1.5-7.7); Hematocrit 26 % (42-52); Lymphocyte % 19.5 %; Mean Corpuscular HGB Conc 35 g/dL (31-36); Mean Corpuscular Hemoglobin 32 pg (27-31); Mean Corpuscular Volume 93 fL (80-94); Mean Platelet Volume 8.6 fL (7.4-10.4); Nucleated Red Blood Cells % 0.1; Platelet Count 195 10^3/uL (150-450); Red Blood Count 2.82 10^6 /uL (4.18-5.48); Red Cell Distribution Width 15 % (10-15); White Blood Count 5.3 10^3/uL (3.5-10.8)
[2020-01-05 15:44] LABS: Hematocrit 26 % (42-52); Hemoglobin 8.7 g/dL (14.0-18.0)
[2020-01-06 07:09] LABS: Hematocrit 26 % (42-52); Hemoglobin 8.9 g/dL (14.0-18.0)
[2020-01-06] MEDS: Mometasone/Formoter 200/5 MDI INH SCH (08:11)
[2020-01-06] MEDS: Sucralfate 1 gm SUSP 1 GM/10 ML UDC PO SCH ×2 (08:44→11:28)
[2020-01-06 11:02] VITALS: BP 119/42
== END 2020-01-06 14:56 | disposition home or self-care (01) | DRG 811 ==
LOC: ED 22:56 → MED 22:56
PROVIDERS: ADMIT Student in an Organized Health Care Education/Training Program; ATTEND Internal Medicine

== ENCOUNTER 2021-01-07 07:58 | Observation (INO) ==
[2021-01-07] MEDS ORDERED: Clindamycin 600 MG/D5W BAG IV ONE (08:00)
[2021-01-07] MEDS ORDERED: Lidocaine 1% VIAL 10 MG/ML VIAL ONE (08:54)
[2021-01-07] MEDS ORDERED: Iohexol 300 (CONTRAST) 10 ML SDV ONE (08:55)
[2021-01-07] MEDS ORDERED: fentaNYL 100 mcg/2 ml 50 MCG/ML VIAL ONE (09:05)
[2021-01-07] MEDS ORDERED: Midazolam 5 mg/5 ml VIAL 1 mg/ml 5 ml VIAL (5 mg) ONE (09:05)
[2021-01-07] MEDS ORDERED: Levalbuterol 0.63MG/3ML NEB UNIT OF USE INH PRN (11:51)
[2021-01-07] MEDS: Clindamycin 300 MG/D5W BAG 300 MG/50 ML BAG IV SCH ×2 (14:22→20:13)
[2021-01-07] MEDS: Levalbuterol HFA INHALER MDI INH SCH (20:00)
[2021-01-07] MEDS ORDERED: Aspirin EC 81 mg TAB.EC (enteric coated) PO SCH (21:00)
[2021-01-08] MEDS: Clindamycin 300 MG/D5W BAG 300 MG/50 ML BAG IV SCH ×2 (00:58→07:53)
[2021-01-08] MEDS: Levalbuterol HFA INHALER MDI INH SCH (07:23)
[2021-01-08] MEDS ORDERED: SPIRIVA Respimat (tiotropium) 2.5 mcg/inh Inhaler INH SCH (09:00)
[2021-01-08 10:04] VITALS: BP 130/59
== END 2021-01-08 09:59 | disposition home or self-care (01) ==
LOC: MEDTELE 07:58 → CHICATH 07:58
PROVIDERS: ADMIT Specialist; ATTEND Specialist